=== PATIENT | female | born 1995 | race Caucasian/White ===

== ENCOUNTER 2020-09-28 09:19 | Outpatient (NON) | payer BC, SELFPAY ==
[2020-09-28 18:24] LABS: SARS-CoV-2 RNA PCR Negative
== END 2020-09-28 09:20 ==
LOC: ANHCOVIDDT 09:20
PROVIDERS: PCP Family Medicine; Visit Provider Physician Assistant Medical
DX: R09.81 Nasal congestion (principal); J02.9 Acute pharyngitis, unspecified
CPT/HCPCS: 87635; C9803; U0003

== ENCOUNTER 2023-02-12 07:38 | Outpatient (RCR) | payer OTHER, SELFPAY ==
[2023-02-12 07:56] LABS: Hematocrit 36.5 % (37.0-47.0); Hemoglobin 11.8 g/dL (12.0-15.0); Mean Corpuscular HGB Conc 32.3 g/dl (32-36); Mean Corpuscular Hemoglobin 28.4 pg (26-34); Mean Platelet Volume 10.1 fl (7.4-10.4); Platelet Count Result 289 k/mm3 (150-375); Red Blood Count 4.15 M/mm3 (4.2-5.4); Red Cell Distribution Width 13.1 % (11.5-14.5); White Blood Count 10.1 K/mm3 (4.5-10.0)
[2023-02-12 09:31] LABS: Glucose 1 Hour PP 50gm Dose 86 mg/dL
[2023-02-12] MEDS: RHO(D) IMMUNE GLOBULIN 300 MCG/2 ML SYRINGE IM (11:46)
[2023-02-20 12:28] LABS: Reference Lab Test Result Nonreactive
== END 2023-05-13 23:59 | disposition home or self-care (01) ==
LOC: ANHLAB 07:38
PROVIDERS: PCP Family Medicine; Visit Provider Student in an Organized Health Care Education/Training Program
DX: Z29.13 Encounter for prophylactic Rho(D) immune globulin (principal); O36.0190 Maternal care for anti-D [Rh] antibodies, unspecified trimester, not applicable or unspecified; Z3A.00 Weeks of gestation of pregnancy not specified
CPT/HCPCS: 36415; 82947; 85027; 85461; 86703; 86850; 86900; 86901; 87389; 90384; 96372; G0432; J2790

== ENCOUNTER 2023-04-25 14:06 | Inpatient (IN) | payer OTHER, SELFPAY ==
[2023-04-25] VITALS (48 sets, daily range): BP systolic 95–188; BP diastolic 62–154; PULSE 67–142; RESP 16; TEMP 36.5–36.9; O2SAT 96–100; BMI 28.8
[2023-04-25] MEDS: LACTATED RINGERS 1,000 ML 125 ML IV CONT (16:50)
[2023-04-25] MEDS: AMPICILLIN 2 GM/NS 100 ML 2 GM/100 ML BAG IVPB (16:50)
--- NOTE | 2023-04-25 16:57 | WPDANESEPP ---
Anes - Eval Pre Procedure Procedure: Labor epidural Date/Time: 04/25/23 16:57 Surgeon: Paul Preop Diagnosis: Abdominal pain with contractions Pre Op Diagnosis: labor Patient Data Age: 28 Gender: F Height: Weight: Allergies Allergy/AdvReac Type Severity Reaction Status Date / Time latex AdvReac Itching Verified 04/23/23 08:03 Home Medications Medication Instructions Recorded Confirmed Type prenat.vits,tammy,wpo-ftff-ndaok 1 tablet PO DAILY 10/22/22 04/09/23 History Laboratory Tests 04/25/23 16:48 WBC Pending RBC Pending Hgb Pending Hct Pending MCV Pending MCH Pending MCHC Pending RDW Pending Plt Count Pending MPV Pending Immature Gran % (Auto) Pending Neut % (Auto) Pending Lymph % (Auto) Pending [place] % (Auto) Pending Eos % (Auto) Pending Baso % (Auto) Pending Lymph # (Auto) Pending [place] # (Auto) Pending Eos # (Auto) Pending Baso # (Auto) Pending Abs Immat Gran (auto) Pending Absolute Neuts (auto) Pending Absolute Nucleated RBC Pending Nucleated RBC % Pending RPR Pending : gestational age HCG: positive Patient hx anesthesia problems: none Family hx anesthesia problems: none Results Review: All pre-operative results and documents have been reviewed as part of the pre-operative evaluation. [facility] Past Medical History Medical History Migraine and not yet delivered Suppression of menses Surgical History Surgical History [place] teeth extracted Family History Family History Grandparent Diabetes mellitus Grandparent Colon cancer Rheumatoid arthritis Social History Social History Smoking status: Never smoker Alcohol intake: current Alcohol use details: Rarely Substance use: never Substance use type: does not use Lack of Transportation: No Lack of Food: Never True Current Housing: I Have Housing Concerned About Future Housing: No Difficulty Paying Gas/Electric Bills: No Difficulty Paying for Meds: No Currently Unemployed: No Education: Master's Degree or Higher Difficulty w/ Childcare or Family Care: No Living arrangements: with family Occupation/Education: occupation Additional occupation/education comments: teacher Gender identity (if verbalized by the patient): Female Sexual Orientation (if Verbalized by the Patient): Straight or Heterosexual Spiritual care concerns: No Exam Day of Procedure 04/25/23 16:57 Patient weight: overweight Airway: Mallampati scale class II
[2023-04-25 17:01] LABS: Basophils Absolute Auto 0.1 K/mm3 (0.0-0.1); Basophils Percent Auto 0.4 % (0.2-1.2); Eosinophils Percent Auto 0.1 % (0-4.4); Hemoglobin 12.8 g/dL (12.0-15.0); Immature Granulocyte Absolute 0.09 K/mm3 (0.00-0.031); Immature Granulocyte Percent A 0.6 % (0-0.5); Lymphocytes Absolute Auto 1.98 K/mm3 (0.9-3.2); Lymphocytes Percent Auto 12.2 % (18.3-44.2); Mean Corpuscular HGB Conc 32.8 g/dl (32-36); Mean Corpuscular Hemoglobin 27.6 pg (26-34); Mean Corpuscular Volume 84.2 fl (80-100); Mean Platelet Volume 10.2 fl (7.4-10.4); Monocytes Absolute Auto 0.7 K/mm3 (0.1-0.6); Monocytes Percent Auto 4.6 % (2.6-8.5); Neutrophils Absolute Auto 13.3 K/mm3 (1.3-6.7); Neutrophils Percent Auto 82.1 % (45.5-73.1); Platelet Count Result 367 k/mm3 (150-375); Red Blood Count 4.63 M/mm3 (4.2-5.4); Red Cell Distribution Width 13.5 % (11.5-14.5); White Blood Count 16.2 K/mm3 (4.5-10.0)
--- NOTE | 2023-04-25 17:03 | WPDHPUPDATE1 ---
History and Physical Update Update Date/Time: 04/25/23 17:03 28-year-old G1 at 39 weeks 2 days who presents in labor. Patient reports regular contractions. complicated by GBS positive and Rh negative status. , uncomplicated otherwise. History and Physical has been reviewed, including an updated exam of the patient. There are NO changes in the patient's condition. Risks, benefits, and alternatives have been discussed and questions answered. Patient agrees to proceed with procedure. A/P: Admit to L&D Routine admission orders Patient mehdi regular on monitor Patient may have epidural if request GBS positive, will start antibiotics in labor Rh negative, will administer RhoGAM Continuous external monitoring May augment with Pitocin as necessary expected management
--- NOTE | 2023-04-25 17:09 | LDADM ---
This patient, Betzaida Leonardo, was admitted to Labor/Delivery/Recovery 105 on 04/25/23 at 14:06. Plans for labor, pain management and were discussed with patient. Patient/family oriented to hospital policies and general routines including ID bracelet, bed and alarms, visiting hours, pain management, procedures, bathroom and other care routines, personal items, smoking policy, room service/diet and guest tray routines, security routines, and visiting hours. Patient/Family are encouraged to report perceived risks to care and to ask questions if they do not understand what they are told or what they should do. See [facility]BI[facility] for further documentation.
[2023-04-25] MEDS: OXYTOCIN 30 UNITS/NS 500 ML 30 UNITS/500 ML BAG 125 UNITS IV CONT (19:00)
--- NOTE | 2023-04-25 19:10 | PM.OBPRVD ---
OB - Delivery Note Procedure Procedure: Patient pushed for a spontaneous vaginal delivery. was noted to have a tight nuchal and was delivered through. The fetus was delivered atraumatically and placed on the maternal abdomen. The cord was clamped and cut after 1 minute of life. The cord was double clamped and cut and a segment of cord was collected for cord gases. Cord blood was collected for blood type and Coomb's testing. The placenta delivered spontaneously and was noted to be intact. The perineum was inspected and there was a 2nd degree perineal laceration. The laceration was repaired with 3-0 vicryl in the usual fashion. The uterus was firm and good hemostasis was noted. The patient and fetus were stable in the delivery room. Delivery monitor: External FHT Route of delivery: Episiotomy description: None Laceration Description: Perineal - 2nd Degree Delivery repair: vicryl Specimen: No Quantitative Blood Loss (ml): 350 Anesthesia type: Local Disposition: Floor () Complications: No immediate complications [place] Baby Date of : 04/25/23 Time of : 18:25 Weeks of gestation at delivery: 39 gender: Male Weight (pounds): 7 Weight (ounces): 5 presentation: vertex position: Right Occiput Anterior Placenta delivery description: Spontaneous Cord Vessel Description: 3 Vessels and Nuchal Cord score one minute: 8 score five minutes: 9 AMG Delivery Billing Delivery Delivery: Delivery Charge
[2023-04-25] MEDS: WITCH HAZEL 40 PADS 1 PAD TOPICAL (20:30)
[2023-04-25] MEDS: BENZOCAINE 20% AER SPR (*SP) 56 GM CAN 1 SPRAY TOPICAL (20:30)
[2023-04-26 05:56] LABS: Hematocrit 31.7 % (37.0-47.0); Hemoglobin 10.2 g/dL (12.0-15.0)
[2023-04-26 07:10] VITALS: BP 101/63; PULSE 55; RESP 16; TEMP 36.9; O2SAT 100
[2023-04-26] MEDS: IBUPROFEN 600 MG TABLET PO ×2 (09:07→17:42)
[2023-04-26] MEDS: MULTIVIT/MIN/PREN/FOL AC/IRON TABLET 1 TAB PO (09:07)
[2023-04-26] MEDS: DOCUSATE SODIUM 100 MG CAPSULE PO (09:07)
--- NOTE | 2023-04-26 11:45 | PM.OBDSVD ---
DS: Admitting Diagnosis Discharge Date 04/27/23 <Allan Goncalves MD - Last Filed: 04/29/23 08:00> Admitting Diagnosis intrauterine at term <Allan Goncalves MD - Last Filed: 04/29/23 08:00> DS: Discharge Diagnosis Discharge Diagnosis (1) Normal vaginal delivery: Code(s): O80 - Encounter for full-term uncomplicated delivery <Allan Goncalves MD - Last Filed: 04/29/23 08:00> Status: Acute <Allan Goncalves MD - Last Filed: 04/29/23 08:00> OB - DS: Summary OB Procedures : None <Allan Goncalves MD - Last Filed: 04/29/23 08:00> Ultrasound <Page Miller MD - Last Filed: 04/27/23 08:45> OB Procedures Intrapartum: Spontaneous Vag Delivery <Allan Goncalves MD - Last Filed: 04/29/23 08:00> OB Procedures: : None <Allan Goncalves MD - Last Filed: 04/29/23 08:00> Peripartum Data Delivery Method: Natural Vaginal <Page Miller MD - Last Filed: 04/27/23 08:45> Laceration Description: Perineal - 2nd Degree <Page Miller MD - Last Filed: 04/27/23 08:45> complications: none <Page Miller MD - Last Filed: 04/27/23 08:45> 1: Gender: Male <Page Miller MD - Last Filed: 04/27/23 08:45> Disposition of : home <Page Miller MD - Last Filed: 04/27/23 08:45> Status at Discharge Functional status at discharge: independent ambulation <Allan Goncalves MD - Last Filed: 04/29/23 08:00> Overall status at discharge: patient is back to baseline <Allan Goncalves MD - Last Filed: 04/29/23 08:00> Time Spent with Patient Time attestation: Total time spent providing and/or coordinating discharge services: <Allan Goncalves MD - Last Filed: 04/29/23 08:00> Time spent: Less than 30 minutes <Allan Goncalves MD - Last Filed: 04/29/23 08:00> Exam Const: General: comfortable and no acute distress <Allan Goncalves MD - Last Filed: 04/29/23 08:00> Resp: Effort & Inspection: normal respiratory effort <Allan Goncalves MD - Last Filed: 04/29/23 08:00> Auscultation: clear to auscultation bilaterally <Allan Goncalves MD - Last Filed: 04/29/23 08:00> Cardio: Rate: regular rate <Allan Goncalves MD - Last Filed: 04/29/23 08:00> GI: GI Palp: Yes Soft to palpation <Allan Goncalves MD - Last Filed: 04/29/23 08:00> Auscultation: normal bowel sounds <Allan Goncalves MD - Last Filed: 04/29/23 08:00> Other: Fundus firm below umbilicus <Allan Goncalves MD - Last Filed: 04/29/23 08:00> Psych: Appearance: grossly normal <Allan Goncalves MD - Last Filed: 04/29/23 08:00> Mental Status: mental status grossly normal <Allan Goncalves MD - Last Filed: 04/29/23 08:00> Affect: normal affect <Allan Goncalves MD - Last Filed: 04/29/23 08:00> DS: Data Data Completed and Pending Labs on day of discharge: Labs from last 24 hours 04/26/23 04/25/23 05:05 16:48 WBC 16.2 H RBC 4.63 Hgb 10.2 L 12.8 Hct 31.7 L 39.0 MCV 84.2 MCH 27.6 MCHC 32.8 RDW 13.5 Plt Count 367 MPV 10.2 Immature Gran % (Auto) 0.6 H Neut % (Auto) 82.1 H Lymph % (Auto) 12.2 L [place] % (Auto) 4.6 Eos % (Auto) 0.1 Baso % (Auto) 0.4 Lymph # (Auto) 1.98 [place] # (Auto) 0.7 H Eos # (Auto) 0.0 Baso # (Auto) 0.1 Abs Immat Gran (auto) 0.09 H Absolute Neuts (auto) 13.3 H Absolute Nucleated RBC 0.0 Nucleated RBC % 0.0 RPR Pending Blood Type O Negative O Negative Antibody Screen TNP Positive Antibody Identification Passive Due to RH Imm Glob Antigen Identification Cancelled IRMA, IgG Interpret Not Performed IRMA, Poly Interpret Neg IRMA, Complement Interp Not Performed Screen Negative Baby's Blood Type O pos Baby's IRMA Negative Doses of RhIg Required 1 <Allan Goncalves MD - Last Filed: 04/29/23 08:00> Discharge Plan Discharge Attending physician on di
[2023-04-26 12:23] VITALS: BP 101/54; PULSE 93; RESP 16; TEMP 36.9; O2SAT 100
--- NOTE | 2023-04-26 12:28 | PC.NURSE ---
[id number] Introductions were made, then consulted with patient to assess needs related to . Mother led the conversation with her?plans to feed?her infant and the?experience so far. Mother states infant has been well with no pain other than discomfort that subsides after about 1 minute. Resources provided for inpatient and outpatient services with the feeding sheet, mom/baby guide and name written on the white board. Mother voiced understanding of information and will call if there is a request for assistance.
--- NOTE | 2023-04-26 13:41 | PC.NURSE ---
[id number] Primary RN is present in the room. is less than 24 hours old and has been circumcised today. Reports to RN that is sleepy and reluctant and hasn't eaten since the 0800 hour. Mother works with her infant with encouragement and education. Visitors are at bedside. Encouraged understanding of the benefits of skin to skin (demonstrating unwrapping infant and placing upright on her chest), stimulating with massage touch, changing positions to encourage wakefulness, how to watch for early feeding cues, hand expression, responsive feeding, feeding on demand (aiming for 8-12 times in 24 hours, about every 2-3 hours), milk production, building/maintaining a milk supply, duration of feeding, signs of adequate intake/output and how to record on the feeding sheet. Mother's nipples are visibly injured with excoriated areas. Reviewed positioning and ear, shoulder, hip alignment, supporting the breast to facilitate a deep latch, asymmetrical latch (off-center), leading with the chin with a big, open, wide gape and body close to mother. Infant latched optimally to the left breast in cross cradle position. Education given to mother of how to visualize suck/swallow ratios and listen for drinking at the breast. was able to maintain latch without discomfort to mother and swallowing heard. Nipple care reviewed with optimal latch and good positioning. Reminding mother of comfort measures of healing with a warm and wet washcloth to rinse breast, then leave open to air-dry as needed. Reviewed good handwashing when or touching the breast/nipples to prevent infection. Resources used to facilitate learning were used with the tool, mom and baby guide. Mother voiced understanding of skin to skin, stimulating with massage touch, responsive feedings, hand expressed colostrum, talking to infant to encourage if it has been 2 -2.5 hours since the start of the last , to call if infant does not latch, or if there is discomfort with . Resources provided for inpatient/outpatient with the mom/baby guide. Parents voiced understanding of information, demonstrated learning and will call if there is a request for assistance.
[2023-04-26 14:22] LABS: Rapid Plasma Reagin Non-Reactive (NonReactive)
[2023-04-26 18:40] VITALS: BP 116/65; PULSE 99; RESP 16; TEMP 36.6
[2023-04-27 05:29] VITALS: BP 110/68; PULSE 64; RESP 16; TEMP 36.6; O2SAT 100
[2023-04-27] MEDS: RHO(D) IMMUNE GLOBULIN 300 MCG/2 ML SYRINGE IM (05:30)
[2023-04-27] MEDS: BENZOCAINE 20% AER SPR (*SP) 56 GM CAN 1 SPRAY TOPICAL (08:00)
[2023-04-27] MEDS: DOCUSATE SODIUM 100 MG CAPSULE PO (08:00)
[2023-04-27] MEDS: IBUPROFEN 600 MG TABLET PO (08:00)
[2023-04-27] MEDS: MULTIVIT/MIN/PREN/FOL AC/IRON TABLET 1 TAB PO (08:00)
[2023-04-27] MEDS: WITCH HAZEL 40 PADS 1 PAD TOPICAL (08:00)
[2023-04-27 08:45] VITALS: BP 120/82; PULSE 86; RESP 14; TEMP 36.5; O2SAT 100
[2023-04-29 10:17] VITALS: BP 108/68; PULSE 95; RESP 18; TEMP 36.2; O2SAT 100
== END 2023-04-27 10:07 | disposition home or self-care (01) | DRG 807 ==
LOC: ANHOB2 04-27 08:48 → ANHLDR 04-30 09:07 → ANHOB2 04-30 09:07
PROVIDERS: Admitting Provider Student in an Organized Health Care Education/Training Program; PCP Family Medicine; Visit Provider Obstetrics & Gynecology
DX: O99.824 Streptococcus B carrier state complicating childbirth (principal); Z37.0 Single live birth; Z3A.39 39 weeks gestation of pregnancy; O69.1XX0 Labor and delivery complicated by cord around neck, with compression, not applicable or unspecified; O26.893 Other specified pregnancy related conditions, third trimester; Z67.91 Unspecified blood type, Rh negative; O70.1 Second degree perineal laceration during delivery
CPT/HCPCS: 36415; 85014; 85018; 85025; 85461; 86592; 86850; 86880; 86900; 86901; 90384; A9270; J0290; J2590; J2790; J7120